=== PATIENT | female | born 1960 | race Hispanic/Latino ===

== ENCOUNTER 2016-11-03 15:26 | Outpatient (CLI) | payer OTHER ==
--- NOTE | 2016-11-03 16:26 | Mammography Report ---
IMPLANT MAMMOGRAM: Bilateral breast imaging was done with standard and displacement technique. Heterogeneously dense parenchyma is symmetrically seen ventral to each saline implant. The implant contours are smooth. No suspicious findings or secondary signs of malignancy are seen. No significant change identified compared to prior exam in May 2015. CAD was utilized. CONCLUSION: Negative implant mammogram. RECOMMENDATION: Routine follow-up. BI-RADS CATEGORY: 1 = Negative ACR BI-RADS MAMMOGRAPHIC CODES: 0 = Needs additional imaging evaluation; 1 = Negative; 2 = Benign; 3 = Probably benign; 4 = Suspicious; 5 = Malignant; 6 = Known biopsy-proven malignancy COMMENT: 1. Dense breast tissue, i.e., adenosis, fibrocystic changes, etc., may obscure an underlying neoplasm. 2. Approximately 10% of cancers are not detected with mammography. 3. A negative mammography report should not delay biopsy if a clinically suspicious mass is present. COMMENT: Patient follow-up letters are generated in [employer].
== END 2016-11-03 15:27 | disposition home or self-care (01) ==
LOC: SPVWC 15:26
PROVIDERS: ATTEND Obstetrics & Gynecology
DX: Z12.31 Encounter for screening mammogram for malignant neoplasm of breast (principal)
CPT/HCPCS: 77067; G0202

== ENCOUNTER 2017-11-22 11:01 | Outpatient (CLI) | payer OTHER ==
--- NOTE | 2017-11-23 08:51 | Mammography Report ---
BILATERAL DIGITAL AUGMENTED SCREENING MAMMOGRAM with CAD: 11/22/17 11:01:00 CLINICAL: Routine screening. COMPARISON:Eleven 2 thousand seventeen FINDINGS: Screening views with and without implant displacement demonstrate heterogeneously dense breasts, which may obscure small masses. A right subareolar asymmetric density with architectural distortion on the implant displaced CC view requires additional imaging. No suspicious calcifications. The left breast is negative. Intact subglandular implants. IMPRESSION: Right subareolar asymmetry requiring additional imaging. BI-RADS CATEGORY: 0 -- Needs Additional Imaging RECOMMENDATION: Recall for right implant displaced CC and LM magnification nipple views and right breast ultrasound if needed. ACR BI-RADS MAMMOGRAPHIC CODES: 0 = Needs additional imaging evaluation; 1 = Negative; 2 = Benign; 3 = Probably benign; 4 = Suspicious; 5 = Malignant; 6 = Known biopsy-proven malignancy COMMENT: 1. Dense breast tissue, i.e., adenosis, fibrocystic changes, etc., may obscure an underlying neoplasm. 2. Approximately 10% of cancers are not detected with mammography. 3. A negative mammography report should not delay biopsy if a clinically suspicious mass is present. COMMENT: Patient follow-up letters are generated via our [employer] application.
== END 2017-11-22 11:02 | disposition home or self-care (01) ==
LOC: SPVWC 11:01
PROVIDERS: ATTEND Obstetrics & Gynecology
DX: Z12.31 Encounter for screening mammogram for malignant neoplasm of breast (principal)
CPT/HCPCS: 77067

== ENCOUNTER 2017-12-01 10:49 | Outpatient (CLI) | payer OTHER ==
--- NOTE | 2017-12-01 13:59 | Mammography Report ---
RIGHT DIGITAL DIAGNOSTIC MAMMOGRAM an RIGHT BREAST ULTRASOUND: 12/01/17 10:00:00 CLINICAL: Recalled for retroareolar asymmetry and architectural distortion on the CC view. COMPARISON:11/22/17 screening FINDINGS: Lateralmedial, MLO and CC magnification nipple views were performed. A retroareolar asymmetry with architectural distortion persists on the CC view but is not identified on other views. Ultrasound of the retroareolar right breast was performed and demonstrated normal fibroglandular structures with no mass or shadowing to correlate with the mammographic finding. IMPRESSION: A probably benign right retroareolar asymmetry with architectural distortion identified only on one mammographic view with a negative ultrasound. BI-RADS CATEGORY: 3 -- Probably Benign RECOMMENDATION: 6 month followup right mammogram and ultrasound if needed. ACR BI-RADS MAMMOGRAPHIC CODES: 0 = Needs additional imaging evaluation; 1 = Negative; 2 = Benign; 3 = Probably benign; 4 = Suspicious; 5 = Malignant; 6 = Known biopsy-proven malignancy COMMENT: 1. Dense breast tissue, i.e., adenosis, fibrocystic changes, etc., may obscure an underlying neoplasm. 2. Approximately 10% of cancers are not detected with mammography. 3. A negative mammography report should not delay biopsy if a clinically suspicious mass is present. COMMENT: Patient follow-up letters are generated via our [employer] application.
== END 2017-12-01 10:50 | disposition home or self-care (01) ==
LOC: SPVWC 10:49
PROVIDERS: ATTEND Obstetrics & Gynecology
DX: N64.89 Other specified disorders of breast (principal)

== ENCOUNTER 2018-07-26 13:52 | Outpatient (CLI) | payer OTHER ==
--- NOTE | 2018-07-26 14:43 | Mammography Report ---
Right mammogram followed by sonogram subareolar area right breast: Compared to 12/01/17. History: Followup of subareolar density right breast with negative sonogram. Findings: Asymmetric densities again noted in the subareolar area right breast without significant interval change. Sonographic examination of the area reveals no cystic or solid mass. Impression: Benign findings. Annual follow with mammogram recommended. BI-RADS CATEGORY: 2 = Benign ACR BI-RADS MAMMOGRAPHIC CODES: 0 = Needs additional imaging evaluation; 1 = Negative; 2 = Benign; 3 = Probably benign; 4 = Suspicious; 5 = Malignant; 6 = Known biopsy-proven malignancy COMMENT: 1. Dense breast tissue, i.e., adenosis, fibrocystic changes, etc., may obscure an underlying neoplasm. 2. Approximately 10% of cancers are not detected with mammography. 3. A negative mammography report should not delay biopsy if a clinically suspicious mass is present. COMMENT: Patient follow-up letters are generated in [employer].
== END 2018-07-26 13:53 | disposition home or self-care (01) ==
LOC: SPVWC 13:52
PROVIDERS: ATTEND Obstetrics & Gynecology
DX: R92.8 Other abnormal and inconclusive findings on diagnostic imaging of breast (principal)